=== PATIENT | female | born 1930 | race Caucasian/White ===

== ENCOUNTER 2017-01-07 22:29 | Inpatient (IN) | payer MEDICARE, BC ==
[~2017-01-07] VITALS: Ht 154.9 cm; Wt 63.5 kg
[~2017-01-07 22:29] MED LIST: HYDROCODON-ACE1 EAC7 PO; IBUPROFEN800 MG PO; MULTI-DAY VITAM1 TAB PO; MULTIPLE VITAMI1 TA1
[2017-01-07 23:04] LABS: APPEARANCE CLEAR (CLEAR); BILIRUBIN NEGATIVE (NEGATIVE); COLOR YELLOW (YELLOW); GLUCOSE NEGATIVE (NEGATIVE); KETONE NEGATIVE (NEGATIVE); LEUKOCYTE ESTERASE TRACE (NEGATIVE); NITRITE NEGATIVE (NEGATIVE); PROTEIN NEGATIVE (NEGATIVE); UROBILINOGEN NORMAL (NORMAL)
[2017-01-07 23:05] LABS: BACTERIA FEW /hpf (NONE SEEN); EPITHELIAL CELLS OCC /hpf (0-5); RED CELLS - URINE RARE /hpf (0-5); WHITE CELLS - URINE 0-5 /hpf (0-5)
[2017-01-07 23:36] LABS: HEMATOCRIT 29.4 % (36.0-48.0); HEMOGLOBIN 10.3 g/dL (12-16); LYMPHOCYTES 24.8 % (15-50); MCH 32.5 pg (26.0-34.0); MCV 92.7 fL (80.0-100.0); MEAN PLATELET VOLUME 9.4 fL (7.4-10.4); NEUTROPHILS 68.6 % (40-80); PLATELET COUNT 189 10x3/uL (130-400); RBC 3.17 10x6/uL (4.00-5.40); RDW 13.5 % (11.5-14.5); WBC 6.1 10x3/uL (4.8-10.8)
[2017-01-08] VITALS (12 sets, daily range): BP systolic 138–162; BP diastolic 61–80; Ht 154.9 cm; Wt 63.5 kg
[2017-01-08] LABS: ALBUMIN 3.6 g/dL (3.4-5.0); ANION GAP 14.8 mmol/L (8-16); BILIRUBIN - TOTAL 0.55 mg/dL (0.2-1.3); CARBON DIOXIDE 23.3 mmol/L (21.0-32.0); POTASSIUM - SERUM 4.1 mmol/L (3.5-5.1); PROTEIN - SERUM 6.6 g/dL (6.4-8.2)
[2017-01-08 01:00] LABS: APTT 27.1 SECONDS (22.8-39.4); INR 1.02 (0.85-1.17); PROTIME 13.2 SECONDS (11.6-15.0)
[2017-01-08 06:21] LABS: HEMATOCRIT 26.7 % (36.0-48.0); HEMOGLOBIN 9.2 g/dL (12-16)
--- NOTE | 2017-01-08 08:02 | NUR ---
PATIENT RECEIVED TO FLOOR FROM ER VIA STRETCHER. PATIENT TRANSFERRED SELF TO BED. NO SIGNS OF DISTRESS NOTED. A/O X4. ORIENTED TO ROOM. FAMILY PRESENT. SIDE RAILS UP X2. BED IN LOW POSITION. CALL LIGHT IN REACH.
[2017-01-08] MEDS ORDERED: ALEVE220 MG PO ×2 (08:11→08:12)
[2017-01-08] MEDS ORDERED: ZESTRIL20 MG PO (08:12)
--- NOTE | 2017-01-08 09:50 | NUR ---
PRBC INITIATED PER ORDER. TRANSFUSING TO RIGHT AC WITHOUT DIFFICULTY. VITAL SIGNS STABLE.
--- NOTE | 2017-01-08 10:32 | NUR ---
* Is the patient Alert and Oriented? Yes 0 * How many steps to enter\exit or inside your home? 2 0 * PCP KATARINA 0 * [facility] IN [place] 0 * Preadmission Environment Home with Family 0 * ADLs Independent 0 * Equipment Cane Shower Chair Walker 0 * List name and contact numbers for known caregivers / representatives who currently or will assist patient after discharge: JOSÉ MIGUEL (DAUGHTER) [phone] 0 * Community resources currently utilized None 0 * Additional services required to return to the preadmission environment? Yes 0 * Can the patient safely return to the preadmission environment? Yes 0 * Has this patient been hospitalized within the prior 30 days at any hospital? No Patient Name: MAGGIE HONG Admission Status: ER Accout number: [id number] Admission Date: 01-08-2017 : 1931 Admission Diagnosis: Attending: IMELDA Current LOS: 1 Anticipated DC Date: 01-10-2017 Planned Disposition: Home Primary Insurance: MEDICARE A & B Discharge Planning Comments: CM met with patient and daughter (José Miguel) to assess discharge planning/needs. Patient lives with her daughter in [place]. Patient states her home is a safe place and either her son(Prince) or Daughter will drive her home. Patient states that she has a cane, walker, and shower chair with a walk in shower. CM will continue to follow and assist as needed with discharge planning/needs. PCP: [facility]: Ivonne José Miguel (Daughter) [phone] Electrical Test Engineer: Chloe Robins
--- NOTE | 2017-01-08 10:40 | NUR ---
ALERT IN BED WITH FAMILY AT BEDSIDE. NO SIGNS OF DISTRESS NOTED. CONSENT OBTAINED FOR ORDERED PROCEDURE. SCDS ON BILATERALLY. SIDE RAILS UP X2. BED IN LOW POSITION. CALL LIGHT IN REACH.
--- NOTE | 2017-01-08 11:37 | NUR ---
PATIENT OFF FLOOR TO GI LAB VIA STRETCHER
--- NOTE | 2017-01-08 12:40 | NUR ---
PATIENT BACK TO ROOM FROM GI LAB VIA STRETCHER. A/O X4. VITAL SIGNS STABLE. FAMILY PRESENT. SIDE RAILS UP X2. BED IN LOW POSITION. CALL LIGHT IN REACH.
--- NOTE | 2017-01-08 12:55 | NUR ---
PRBC TRANSFUSION COMPLETE. VITAL SIGNS STABLE. FAMILY PRESENT. DENIES NEEDS. SIDE RAILS UPX 2. BED IN LOW POSITION. CALL LIGHT IN REACH.
--- NOTE | 2017-01-08 14:15 | NUR ---
SITTING UP ON SIDE OF BED VISITING WITH SON. NO SIGNS OF DISTRESS NOTED. DENIES NEEDS. SIDE RAILS UP X2. BED IN LOW POSITION. CALL LIGHT IN REACH.
[2017-01-08 15:09] LABS: HEMATOCRIT 30.3 % (36.0-48.0); HEMOGLOBIN 10.5 g/dL (12-16)
--- NOTE | 2017-01-08 15:50 | NUR ---
IV TO RIGHT AC LEAKING. IV D/C WITH CATH TIP INTACT. SITE COVERED WITH GAUZE AND BANDAID. NEW 22 GAUGE IV SITE TO RIGHT FOREARM X1 ATTEMPT. FLUSHES EASY WITH BLOOD RETURN PRESENT. SECURED WITH TAPE AND TEGADERM. WELL TOLERATED.
--- NOTE | 2017-01-08 17:45 | NUR ---
ALERT IN BED EATING DINNER. TOLERATING WELL. FAMILY AT BEDSIDE. SIDE RAILS UP X2. BED IN LOW POSITION. CALL LIGHT IN REACH.
--- NOTE | 2017-01-08 20:21 | NUR ---
PATIENT RESTING IN BED. ALERT AND ORIENTED. C/O PAIN 5/10 TO LOWER BACK. HEAT PACK GIVEN AT PATIENT REQUEST. SCHEDULED MEDS GIVEN. SHIFT ASSESSMENT COMPLETED. DENIES ANY OTHER NEEDS AT THIS TIME.
[2017-01-08 21:26] LABS: HEMATOCRIT 27.5 % (36.0-48.0); HEMOGLOBIN 9.4 g/dL (12-16)
[2017-01-09 04:00] VITALS: BP 168/70
[2017-01-09 05:39] LABS: BASOPHILS 0 % (0-2); EOSINOPHILS 4.1 % (0-7); HEMATOCRIT 29.6 % (36.0-48.0); HEMOGLOBIN 10.1 g/dL (12-16); IMMATURE GRANULOCYTES 0.2 % (0-5); LYMPHOCYTES 27.2 % (15-50); MCH 31.7 pg (26.0-34.0); MCHC 34.1 g/dL (31.0-37.0); MCV 92.8 fL (80.0-100.0); MEAN PLATELET VOLUME 9.6 fL (7.4-10.4); NEUTROPHILS 61.5 % (40-80); PLATELET COUNT 161 10x3/uL (130-400); RBC 3.19 10x6/uL (4.00-5.40); RDW 14.6 % (11.5-14.5)
[2017-01-09 05:43] LABS: WBC 4.1 10x3/uL (4.8-10.8)
[2017-01-09 05:53] LABS: ANION GAP 12.3 mmol/L (8-16); CALCIUM 8.4 mg/dL (8.5-10.1); CARBON DIOXIDE 22.2 mmol/L (21.0-32.0); CREATININE - SERUM 0.8 mg/dL (0.6-1.3); POTASSIUM - SERUM 3.5 mmol/L (3.5-5.1)
--- NOTE | 2017-01-09 07:15 | NUR ---
ASSESSMENT COMPLETE. IV TO R FA PATENT. NS INFUSING AT 125 CC/HR AND PROTONIX INFUSING AT 10 CC/HR VIA PUMP. SITTING UP IN CHAIR. COMPLAINING OF BACK PAIN. SCDS IN USE WHILE IN BED. FAMILY AT BEDSIDE. DENIES ANY NEEDS AT PRESENT.
--- NOTE | 2017-01-09 07:24 | HP ---
PATIENT: MAGGIE HONG MEDICAL RECORD: [id number] ACCOUNT: [id number] LOCATION:[facility] : 31 ADMISSION DATE: 01/08/17 HISTORY AND PHYSICAL EXAMINATION DATE OF ADMISSION: 01/08/2017 CHIEF COMPLAINT: Dark tarry stools. HISTORY OF PRESENT ILLNESS: The patient is an 86-year-old female, who yesterday felt ill. She states that she had had some intermittent nausea. She developed dark tarry type stools. She presented to the Emergency Room where it was felt the patient had a GI bleeding and should be admitted. PAST MEDICAL HISTORY: She has had a history of carpal tunnel syndrome. She has had lumbar surgery in the past, had a hysterectomy. She is G2, P2 female, who has had a history of having depression, hypertension and arthritis. MEDICATIONS: Her medications include hydrocodone 5/325 one every 4 hours p.r.n. severe pain, lisinopril 20 mg 1 p.o. q. day, Detrol 4 mg 1 p.o. q day, Zantac 150 mg b.i.d. ALLERGIES: SHE IS ALLERGIC TO PENICILLIN. SOCIAL HISTORY: The patient is a . She is educated through the 12th grade. She was born and raised in [place], moved to [place] in 1969 where she currently resides. FAMILY HISTORY: Mother and father both had a history of colorectal cancer. Sister had lung cancer, one brother with Alzheimer's, one brother with CHF. REVIEW OF SYSTEMS: GENERAL: She denies any headaches, seizure or syncope. Denies change in visual or auditory acuity. PULMONARY: She denies any shortness of breath, cough, congestion, history of TB, asthma, or bronchitis. CARDIOVASCULAR: She has had no chest pain, palpitation, PND or orthopnea. GASTROINTESTINAL: No chronic nausea, vomiting, melena or hematochezia. GENITOURINARY: No urgency, frequency, or dysuria. PHYSICAL EXAMINATION: VITAL SIGNS: In the Emergency Room, the patient's temperature was 98, her pulse was 96, respirations 18, blood pressure 147/75. She is alert and oriented times 3. HEENT: Head is normocephalic. No lesions. Ears: TMs clear. Eyes: Pupils equal, round and reactive to light. Her extraocular movements are intact. Her nasal cavity, oral cavity, oropharynx clear. NECK: Supple. There is no adenopathy. HEART: Has a regular rate and rhythm without murmurs, gallops or rubs. LUNGS: Clear. ABDOMEN: She does have some mid epigastric tenderness and the left lower quadrant tenderness. LABORATORY DATA: She had a hemoglobin 9.2, hematocrit 26.7, her platelets were 189. INR of 1.02. PT is 13.2. Initially, her hemoglobin was 10.3, hematocrit HISTORY AND PHYSICAL [id number] MAGGIE HONG 29.4. The patient's sodium 134, potassium 4.1, chloride is 100, BUN is 51, creatinine of 1.0. Liver function normal. Urinalysis unremarkable. ASSESSMENT: Dark tarry stools, felt to be secondary to upper gastrointestinal bleed. PLAN: The patient will be admitted. She will be placed on Protonix drip. GI consultation will be obtained. Also, we will have serial H&Hs q. 6 hours and transfuse if needed. TRANSINT:[id number] Voice Confirmation ID: [id number] DOCUMENT ID: [id number] PAYAL BRAY MD at 0724 CC: [id number] DICTATION DATE: 01/08/17719 WATER PLANT PUMP OPERATOR SUPERVISOR: 01/08/17 0857 ADM IN [place] [id number] [place] [id number]
[2017-01-09 07:49] VITALS: BP 166/67
--- NOTE | 2017-01-09 09:44 | NUR ---
RESTING QUIETLY WITH EYES CLOSED. FAMILY AT BEDSIDE.
--- NOTE | 2017-01-09 12:00 | NUR ---
FAMILY AT BEDSIDE. DENIES ANY NEEDS AT PRESENT.
[2017-01-09 12:17] LABS: HEMATOCRIT 27.3 % (36.0-48.0); HEMOGLOBIN 9.2 g/dL (12-16)
[2017-01-09 12:19] VITALS: BP 154/55
--- NOTE | 2017-01-09 13:57 | NUR ---
NO CHANGES NOTED AT PRESENT.
--- NOTE | 2017-01-09 14:20 | NUR ---
Patient refused inpatient rehab, would like to have HH ANITRA signed with [facility] in [place] ([phone]). CM called and spoke with Dr Olmos and PT cheryl ordered. HH referral sent. CM will conitnue to follow and assist as needed with discharge planning/needs.
--- NOTE | 2017-01-09 14:28 | NUR ---
Faxed HH referral to [facility] at [phone]
--- NOTE | 2017-01-09 14:30 | NUR ---
GENERALIZED WEAKNESS. ASSISTED UP TO BATHROOM. DENIES ANY NEEDS AT PRESENT.
[2017-01-09 15:35] VITALS: BP 143/87
[2017-01-09 18:41] LABS: HEMATOCRIT 26.7 % (36.0-48.0); HEMOGLOBIN 8.9 g/dL (12-16)
[2017-01-09 20:00] VITALS: BP 158/59
[2017-01-10] VITALS (8 sets, daily range): BP systolic 148–183; BP diastolic 50–80
--- NOTE | 2017-01-10 01:05 | NUR ---
REC'D. AT [facility]. OF SHIFT.EYES CLOSED RESP. DEEP AND EVEN.FAMILY MEMBER AT BEDSIDE.WILL CONTINUE TO MONITOR FOR ANY CHGES.AND FOLLOW CURRENT PLAN OF CARE.
[2017-01-10 01:24] LABS: HEMOGLOBIN 9.1 g/dL (12-16)
[2017-01-10 05:13] LABS: BASOPHILS 0.3 % (0-2); EOSINOPHILS 5.7 % (0-7); HEMATOCRIT 26.4 % (36.0-48.0); HEMOGLOBIN 8.9 g/dL (12-16); IMMATURE GRANULOCYTES 0.3 % (0-5); LYMPHOCYTES 32.8 % (15-50); MCH 31.3 pg (26.0-34.0); MCHC 33.7 g/dL (31.0-37.0); MEAN PLATELET VOLUME 9.5 fL (7.4-10.4); MONOCYTES 8.2 % (2-11); NEUTROPHILS 52.7 % (40-80); PLATELET COUNT 154 10x3/uL (130-400); RBC 2.84 10x6/uL (4.00-5.40); RDW 14.2 % (11.5-14.5); WBC 3.7 10x3/uL (4.8-10.8)
[2017-01-10 05:20] LABS: ANION GAP 10.4 mmol/L (8-16); CALCIUM 8.2 mg/dL (8.5-10.1); CARBON DIOXIDE 23.8 mmol/L (21.0-32.0); CREATININE - SERUM 0.8 mg/dL (0.6-1.3); POTASSIUM - SERUM 3.2 mmol/L (3.5-5.1)
[2017-01-10] MEDS ORDERED: CARAFATE1 G/10 ML PO (06:46)
[2017-01-10] MEDS ORDERED: PROTONIX40 MG PO (06:46)
--- NOTE | 2017-01-10 08:10 | NUR ---
PT REC'D FROM [facility]. RESTING IN BED WITH AT BEDSIDE. AAOX4. ASSISTED TO BATHROOM. VOIDED LARGE AMOUNT OF CLEAR ROCKY URINE. PIV TO R FA FREE OF REDNESS AND SWELLING. 1ST AND ONLY UNIT OF BLOOD STARTED AT THIS TIME. BLOOD CONSENTS ON THE CHART. NO COMPLAINTS OF PAIN. VSS. BOWEL SOUNDS HYPERACTIVE X4 QUADRANTS. +1 PITTING EDEMA TO BLE. BED LOW, CALL LIGHT IN REACH, WILL MONITOR FOR FIRST 15 MINUTES OF TRANSFUSION.
--- NOTE | 2017-01-10 09:11 | NUR ---
PATIENT RESTING IN HER BED. PATIENT IS AWAKE, ALERT, AND ORIENTED X4. PATIENT IS CURRENTLY RECIEVING A UNIT OF PRBC'S. IV SITE PATENT WITHOUT ANY S/S OF INFECTION NOTED IN PATIENT'S RIGHT FOREARM. PATIENT REQUESTING TO GET UP AND USE THE BATHROOM. ASSISTED PATIENT TO THE BATHROOM USING SBA. NO DIFFICULTIES NOTED. PATIENT VOIDED. ASSISTED PATIENT BACK TO HER BED. PATIENT DENIES ANY FURTHER NEEDS. CALL LIGHT IN PATIENT'S REACH. WILL MONITOR PATIENT.
--- NOTE | 2017-01-10 11:41 | NUR ---
Patient discharging today. with family to drive home. HH is set up with [facility] , I spoke with Clare. Patient denies any other needs.
--- NOTE | 2017-01-10 12:38 | NUR ---
DC INSTRUCTIONS AND FOLLOW UP APPOINTMENT DISCUSSED WITH PT AT THIS TIME. NO QUESTIONS OR CONCERNS VOICED. IV TO R FOREARM DC'D WITH CATHETER INTACT. BELONGINGS CARRIED OUT BY SON. ESCORTED OUT VIA WC.
--- NOTE | 2017-01-21 06:53 | DS ---
PATIENT:MAGGIE HONG :32 MEDICAL RECORD: [id number] DISCHARGE SUMMARY ADMISSION DATE: 01/08/17 DISCHARGE DATE: 01/10/17 DATE OF ADMISSION: 01/08/2017 DATE OF DISCHARGE: 01/10/2017 CONDITION ON DISCHARGE: Improved and stable. ADMITTING DIAGNOSES: Upper gastrointestinal bleed and anemia. DISCHARGE DIAGNOSES: Gastroesophageal hemorrhage and anemia. HOSPITAL COURSE: This patient is an 86-year-old female who began feeling ill 24 hours prior to her admission. She has had intermittent nausea. She developed dark tarry stool, presented to the Emergency Room, which she was felt to have upper GI bleed; therefore, she was felt to need admission. In the Emergency Room, she was afebrile. PHYSICAL EXAMINATION: VITAL SIGNS: Were stable. HEENT: Unremarkable. NECK: Supple. There is no adenopathy. HEART: Had a regular rate. No murmurs, gallops or rubs. LUNGS: Clear. ABDOMEN: She did have some mid epigastric tenderness and left lower quadrant tenderness. LABORATORY DATA: The patient's hemoglobin was 92, hematocrit 26.7 and her platelets were 189. Initially, her hemoglobin was 10.3, hematocrit was 29.4. The patient's sodium 134, potassium 4.1, chloride 100, BUN was 51, creatinine was 1. Liver function is normal. The patient was admitted, placed on a Protonix drip. Serial H&Hs were obtained. GI consultation was obtained. The patient was typed and crossed. She was given 2 units of packed red blood cells. She was seen in consultation by gastroenterologists. The cement patcher did an EGD. The EGD showed a pyloric ulcer. The IV Protonix was switched to p.o. Protonix. She was given Carafate slurries. On the morning of the , her white count was 3.7, hemoglobin 8.9, her hematocrit was 26.4, and platelets were 154. She had potassium of 3.2, her sodium was 141, chloride 110, BUN was 13, creatinine 0.8. She had a normal urinalysis, she had PT, it was 13.2, INR 1.02. She was afebrile. Her vital signs are stable, blood pressure was 148/55, her pulse was 75, respirations 16. She was afebrile. She was felt to be stable and was discharged. DISCHARGE INSTRUCTIONS: She was to be discharged home with her family. She would be on Carafate 1 g q.a.c. and q.h.s., lisinopril 20 mg p.o. daily and Protonix 40 mg p.o. b.i.d. We would stop her Naprosyn. She was to have a regular diet. Her activities were ad paul. She was given 1 unit of packed red blood cells prior to her discharge. She would follow up with me on 01/17/2017 for CBC as well as a BMP. TRANSINT:[id number] Voice Confirmation ID: [id number] DOCUMENT ID: [id number] DISCHARGE SUMMARY REPORT [id number] MAGGIE HONG JAMES MD at 0653 CC: [id number] DICTATION DATE: 01/20/17 1053 COMPENSATION INTERN: 01/20/17 2357 DIS IN 01/10/17 [place] [address] [place] [address]
== END 2017-01-10 12:41 | disposition home or self-care (01) | DRG 378 ==
LOC: D.ER 22:29 → D.MS 01-08 06:38
PROVIDERS: Emergency Medicine; Internal Medicine Gastroenterology; ADMIT Family Medicine
PROC: 0DB68ZX Excision of Stomach, Via Natural or Artificial Opening Endoscopic, Diagnostic (ICD-10-PCS; principal; 2017-01-08 11:30)
DX: K92.2 Gastrointestinal hemorrhage, unspecified (principal); D62 Acute posthemorrhagic anemia; K25.9 Gastric ulcer, unspecified as acute or chronic, without hemorrhage or perforation

== ENCOUNTER → 2018-02-26 12:16 | Outpatient (CLI) | payer MEDICARE, BC ==
[2017-01-08 10:52] VITALS: BMI 26.4
--- NOTE | ~2018-02-26 | EC ---
PATIENT:MAGGIE HONG DATE OF SERVICE: 02/26/18 SEX: F MEDICAL RECORD: [id number] DATE OF : 32 LOCATION:[facility] AGE OF PATIENT: 87 ADMISSION DATE: 02/26/18 REFERRING PHYSICIAN: INTERPRETING PHYSICIAN: COLEMAN MIRANDA MD ECHOCARDIOGRAM REPORT ECHO CHARGES 4 ECHO COMPLETE Date: 02/26 CLINICAL DIAGNOSIS: CP/PALPITATIONS/VERTIGO/ARELLANO ECHOCARDIOGRAPHIC MEASUREMENTS (adult normal given) AC root (d.<3.7cm) 3.2 cm LV Septum d (<1.2 cm> 1.3 cm Valve Excursion 2.0 cm LV Septum (systole) 1.8 cm Left Atria (s.<4.0cm> 3.9 cm LVPW d(<1.2cm) 1.2 cm RV (d.<2.3cm) 2.4 cm LVPW (sytole) 1.7 cm LV diastole(<5.6CM) 4.1 cm MV E-F(>70mm/sec) cm LV systole 1.9 cm LVOT Diameter 1.6 cm MV exc.(>10mm) cm Est.ejection fraction (50-75%) % DOPPLER: LVIT cm/sec A 168 cm/sec E 138 cm/sec LA cm/sec RVSP 41.0 mmHg LVOT 108 cm/sec AOP1/2T m/s Asc. Ao 157 cm/sec RVOT 57.0 cm/sec RA cm/sec PA 74.0 cm/sec AV Gradient Peak 9.9 mmHg AV Mean 5.7 mmHg AV Area 1.4 cm MV Gradient Peak 13.0 mmHg MV Mean 4.5 mmHg MV Area cm COMMENTS: Manager Pharmacy: 1 [facility] Transportation Clerk: 4 Dr. Miranda TAPE# PACS Pericardial Effusion Y DATE OF SERVICE: PROCEDURE: Transthoracic echocardiogram. FINDINGS: 1. Left ventricle has moderate concentric left ventricular hypertrophy with inflow characteristics consistent with diastolic dysfunction. 2. The left atrium appears to be upper limits of normal to mildly dilated. 3. The aortic valve is normal. 4. The mitral valve is grossly normal with trace mitral regurgitation. ECHOCARDIOGRAM REPORT [id number] MAGGIE HONG 5. The tricuspid valve is grossly normal with trace to mild tricuspid regurgitation. RVSP upper limits of normal. 6. The right ventricle is normal size, shape, and function. 7. The right atrium is normal size, shape, structure and function. 8. The pulmonic valve has trace pulmonic insufficiency. There is a trace pericardial effusion without tamponade physiology. TRANSINT:[id number] Voice Confirmation ID: [id number] DOCUMENT ID: [id number] COLEMAN MIRANDA MD at 1436 CC: [id number] DICTATION DATE: 02/28/18 1106 BLOOD BANK BOOKING CLERK: 02/28/18 1128 DEP CLI 02/26/18 [facility] [address] [place] [address]
[~2018-02-26 12:16] MED LIST changes: +ALEVE220 MG PO; +CARAFATE1 G/10 ML PO; +PROTONIX40 MG PO; +ZESTRIL20 MG PO
== END | disposition home or self-care (01) ==
LOC: D.ECHO 12:16
DX: R06.09 Other forms of dyspnea (principal); R42 Dizziness and giddiness; R07.9 Chest pain, unspecified; R00.2 Palpitations